=== PATIENT | female | born 1950 | race Caucasian/White ===

== ENCOUNTER 2017-12-04 13:18 | Emergency (ER) | payer MEDICARE, OTHER ==
[~2017-12-04] VITALS: Ht 167.6 cm; Wt 68.4 kg
[2017-12-04] MEDS ORDERED: ONDANSETRON 2MG/ML, 2ML IVPush ONE (13:30)
[2017-12-04] MEDS ORDERED: SODIUM CHLORIDE 0.9% 1,000ML IVBOLUS ONE (13:30)
[2017-12-04 13:48] LABS: BASOPHILS # (AUTO) 0.06 x10^3/uL (0-0.1); BASOPHILS % (AUTO) 1 % (0-1); EOSINOPHILS # (AUTO) 0.34 x10^3/uL (0-0.4); EOSINOPHILS % (AUTO) 4 % (1-7); LYMPHOCYTES # (AUTO) 2.86 x10^3/uL (1-3.4); LYMPHOCYTES % (AUTO) 34 % (22-44); MD NO; MEAN CORPUSCULAR HGB CONC 34.6 g/dL (32.4-35.8); MEAN CORPUSCULAR VOLUME 86.8 fL (80-100); MEAN PLATELET VOLUME 7.7 fL (7.4-10.4); MONOCYTES # (AUTO) 0.78 x10^3/uL (0.2-0.8); MONOCYTES % (AUTO) 9 % (2-9); NEUTROPHILS # (AUTO) 4.51 x10^3/uL (1.8-6.8); NEUTROPHILS % (AUTO) 53 % (42-75); PLATELET COUNT 313 x10^3/uL (130-400); RED BLOOD COUNT 4.79 x10^6/uL (3.82-5.3); RED CELL DISTRIBUTION WIDTH 13.8 % (9.6-15.2)
[2017-12-04 14:00] LABS: ALBUMIN 4.2 g/dL (3.4-5.0); ANION GAP 7 mmol/L (5-15); CALCIUM 9.3 mg/dL (8.5-10.1); CHLORIDE 107 mmol/L (98-107); CREATININE 0.71 mg/dL (0.55-1.02)
[2017-12-04 14:03] LABS: TROPONIN I < 0.015 ng/mL (0.000-0.045)
[2017-12-04] MEDS ORDERED: ONDANSETRON 2MG/ML, 2ML ONE (14:10)
[2017-12-04 15:31] VITALS: BP 141/60
== END 2017-12-04 15:57 | disposition home or self-care (01) ==
LOC: ED 15:51
DX: R55 Syncope and collapse (principal); J45.909 Unspecified asthma, uncomplicated; R53.1 Weakness; Z90.89 Acquired absence of other organs
CPT/HCPCS: 36415; 80048; 82040; 84484; 85025; 93005; 96360; 99285; J7030

== ENCOUNTER 2017-12-06 20:57 | Emergency (ER) | payer MEDICARE, OTHER ==
[~2017-12-06] VITALS: Ht 167.6 cm; Wt 67.4 kg
[2017-12-06] MEDS ORDERED: LEVO25TA4 PO (21:18)
[2017-12-06 21:46] LABS: BASOPHILS # (AUTO) 0.05 x10^3/uL (0-0.1); BASOPHILS % (AUTO) 1 % (0-1); EOSINOPHILS # (AUTO) 0.28 x10^3/uL (0-0.4); EOSINOPHILS % (AUTO) 3 % (1-7); LYMPHOCYTES # (AUTO) 2.67 x10^3/uL (1-3.4); LYMPHOCYTES % (AUTO) 29 % (22-44); MD NO; MEAN CORPUSCULAR HEMOGLOBIN 30.2 pg (27.0-34.8); MEAN CORPUSCULAR HGB CONC 34.5 g/dL (32.4-35.8); MEAN CORPUSCULAR VOLUME 87.4 fL (80-100); MONOCYTES # (AUTO) 0.82 x10^3/uL (0.2-0.8); MONOCYTES % (AUTO) 9 % (2-9); NEUTROPHILS # (AUTO) 5.32 x10^3/uL (1.8-6.8); NEUTROPHILS % (AUTO) 58 % (42-75); PLATELET COUNT 294 x10^3/uL (130-400); RED BLOOD COUNT 4.63 x10^6/uL (3.82-5.3); RED CELL DISTRIBUTION WIDTH 13.5 % (9.6-15.2)
[2017-12-06 21:54] LABS: ALANINE AMINOTRANSFERASE 34 U/L (12-78); ALBUMIN 3.8 g/dL (3.4-5.0); ANION GAP 7 mmol/L (5-15); CALCIUM 8.9 mg/dL (8.5-10.1); CHLORIDE 109 mmol/L (98-107); CREATININE 1.08 mg/dL (0.55-1.02)
[2017-12-06 21:58] LABS: ALKALINE PHOSPHATASE 66 U/L (45-117); BILIRUBIN,TOTAL 0.4 mg/dL (0.2-1.0); FREE T4 (FREE THYROXINE) 0.89 ng/dL (0.76-1.46); TOTAL PROTEIN 7.5 g/dL (6.4-8.2); TROPONIN I < 0.015 ng/mL (0.000-0.045)
[2017-12-06 22:37] VITALS: BP 128/76
[2017-12-06 22:45] LABS: MICROSCOPIC INDICATED
[2017-12-06 22:46] LABS: CULTURE INDICATED? YES
== END 2017-12-06 23:37 | disposition home or self-care (01) ==
LOC: ED 22:00
DX: R53.1 Weakness (principal); N30.90 Cystitis, unspecified without hematuria; E03.9 Hypothyroidism, unspecified; J45.909 Unspecified asthma, uncomplicated; R42 Dizziness and giddiness; R07.89 Other chest pain; Z90.89 Acquired absence of other organs
CPT/HCPCS: 36415; 80053; 81001; 84439; 84443; 84484; 85025; 87086; 93005; 99285

== ENCOUNTER → 2018-02-14 | Outpatient (CLI) | payer MEDICARE, OTHER ==
[~2018-02-14] MED LIST: LEVO25TA4 PO
== END | disposition home or self-care (01) ==
LOC: CFH 07:46
PROVIDERS: ATTEND Internal Medicine Cardiovascular Disease
DX: R06.02 Shortness of breath (principal); R07.89 Other chest pain; R94.31 Abnormal electrocardiogram [ECG] [EKG]
CPT/HCPCS: 78452; 93017; 93306; A9502

== ENCOUNTER → 2018-03-13 | Outpatient (CLI) | payer MEDICARE, OTHER | END | disposition home or self-care (01) | LOC: CFH 13:03 | PROVIDERS: ATTEND Nurse Practitioner Family | DX: R94.2 Abnormal results of pulmonary function studies (principal) | CPT/HCPCS: 71250 ==

== ENCOUNTER → 2018-06-06 | Outpatient (CLI) | payer MEDICARE, OTHER | END | disposition home or self-care (01) | LOC: CFH 07:02 | PROVIDERS: ATTEND Nurse Practitioner Family | DX: R10.9 Unspecified abdominal pain (principal) | CPT/HCPCS: 76705 ==

== ENCOUNTER 2018-07-06 20:08 | Emergency (ER) | payer MEDICARE, OTHER ==
[~2018-07-06] VITALS: Ht 168.9 cm; Wt 66.7 kg
[2018-07-06 20:38] LABS: BASOPHILS # (AUTO) 0.05 x10^3/uL (0-0.1); BASOPHILS % (AUTO) 1 % (0-1); EOSINOPHILS # (AUTO) 0.44 x10^3/uL (0-0.4); EOSINOPHILS % (AUTO) 4 % (1-7); LYMPHOCYTES # (AUTO) 2.56 x10^3/uL (1-3.4); LYMPHOCYTES % (AUTO) 25 % (22-44); MD NO; MEAN CORPUSCULAR HEMOGLOBIN 30.1 pg (27.0-34.8); MEAN CORPUSCULAR HGB CONC 34.6 g/dL (32.4-35.8); MEAN PLATELET VOLUME 7.9 fL (7.4-10.4); MONOCYTES # (AUTO) 0.88 x10^3/uL (0.2-0.8); MONOCYTES % (AUTO) 9 % (2-9); NEUTROPHILS # (AUTO) 6.25 x10^3/uL (1.8-6.8); NEUTROPHILS % (AUTO) 61 % (42-75); PLATELET COUNT 331 x10^3/uL (130-400); RED BLOOD COUNT 4.93 x10^6/uL (3.82-5.3); RED CELL DISTRIBUTION WIDTH 13.8 % (9.6-15.2)
--- NOTE | 2018-07-06 20:40 | NUR ---
THIS IS A 67 YO FEMALE WHO PRESENTS TO THE ER C/O TWO BRIEF EPISODES OF "JOLTS" TO HER STERNUM AT APPROX 1600 AND APPROX 1800 TODAY RATED AT 3/10 AND 7/10 RESPECTIVELY. PT CURRENTLY DENIES PAIN, SOB OR DIZZINESS. PT REPORTED SHE NOTED HER BP TO BE HIGH AFTER THESE "JOLTS". PT AO X 4. SKIN PWD. RESP EVEN AND EQAUL. PT 70'S NSR ON THE MONITOR. CALL LIGHT WITHIN REACH. WILL CONT TO MONITOR PT.
[2018-07-06 20:47] LABS: ALBUMIN 4.4 g/dL (3.4-5.0); ANION GAP 6 mmol/L (5-15); CALCIUM 9.4 mg/dL (8.5-10.1); CHLORIDE 109 mmol/L (98-107); CREATININE 0.81 mg/dL (0.55-1.02)
[2018-07-06 20:52] LABS: FREE T4 (FREE THYROXINE) 0.84 ng/dL (0.76-1.46); TROPONIN I < 0.015 ng/mL (0.000-0.045)
--- NOTE | 2018-07-06 21:59 | NUR ---
RECEIVED REPORT FORM MAGALYS ISABEL.
--- NOTE | 2018-07-06 22:01 | NUR ---
REPORT TO CHALO HINES AT THIS TIME.
[2018-07-06 22:12] VITALS: BP 121/61
== END 2018-07-06 22:14 | disposition home or self-care (01) ==
LOC: ED 22:03
DX: R00.2 Palpitations (principal); R42 Dizziness and giddiness; J45.909 Unspecified asthma, uncomplicated; Z86.39 Personal history of other endocrine, nutritional and metabolic disease
CPT/HCPCS: 36415; 71045; 80048; 82040; 84439; 84443; 84484; 85025; 93005; 99284

== ENCOUNTER → 2018-07-25 | Outpatient (CLI) | payer MEDICARE, OTHER ==
[~2018-07-25] MED LIST changes: +SINCALIDE (KINEVAC) 5 MCG ONE
== END | disposition home or self-care (01) ==
LOC: PETCFH 07:20
PROVIDERS: ATTEND Family Medicine
DX: R10.9 Unspecified abdominal pain (principal)
CPT/HCPCS: 78227; A9537; J2805

== ENCOUNTER → 2018-08-22 | Outpatient (CLI) | payer MEDICARE, OTHER ==
[~2018-08-22] MED LIST changes: -SINCALIDE (KINEVAC) 5 MCG ONE
== END | disposition home or self-care (01) ==
LOC: CFH 09:42
PROVIDERS: ATTEND Family Medicine
DX: M85.88 Other specified disorders of bone density and structure, other site (principal); Z78.0 Asymptomatic menopausal state; Z88.8 Allergy status to other drugs, medicaments and biological substances
CPT/HCPCS: 77080

== ENCOUNTER → 2020-11-18 | Outpatient (CLI) | payer MEDICARE, OTHER ==
[~2020-11-18] MED LIST changes: +BISM262T12 PO; +CHOL10003 PO; +CLOB15CR19 TP; +DICY10CA3 PO; +LEVA15HF4 INH; +MULT-449 PO; +NASALCORT NAS; +OMEG1CAP25 PO; +RED600CA2 PO; +THYR90TA PO; +TRIA15CR53 TP; +[UNRECOGNIZED DRUG - OTHER] PO; +[UNRECOGNIZED DRUG - OTHER] PO; +[UNRECOGNIZED DRUG - OTHER] PO; +[UNRECOGNIZED DRUG - OTHER] PO; +[UNRECOGNIZED DRUG - OTHER] PO
[2020-11-18 11:51] LABS: MICROSCOPIC NOT IND
== END | disposition home or self-care (01) ==
LOC: STAR 10:33
PROVIDERS: ATTEND Specialist
DX: Z01.818 Encounter for other preprocedural examination (principal); N81.6 Rectocele; Z20.822 Contact with and (suspected) exposure to COVID-19
CPT/HCPCS: 81003; 93005; U0003; U0005

== ENCOUNTER 2020-11-24 08:09 | Day surgery (SDC) | payer MEDICARE, OTHER ==
[~2020-11-24] VITALS: Ht 167.6 cm; Wt 61.3 kg
[2020-11-24 08:48] VITALS: BP 113/71
[2020-11-24] MEDS ORDERED: CHLORHEXIDINE 15 ML UDC ONE (08:50)
[2020-11-24] MEDS ORDERED: LACTATED RINGERS 1,000 ML IV SCH (09:00)
[2020-11-24] MEDS ORDERED: CHLORHEXIDINE 15 ML UDC PO ONE (09:00)
[2020-11-24] MEDS ORDERED: FENTANYL PF 250 MCG/5ML ONE (09:34)
[2020-11-24] MEDS ORDERED: MIDAZOLAM 1 MG/ML, 2ML ONE (09:34)
[2020-11-24] MEDS ORDERED: BUPIVACAINE/PF 0.25% ONE (10:13)
[2020-11-24] MEDS ORDERED: ESTROGENS CONJUGATED VAG CRM 0.625MG/1G, 30GM ONE (10:13)
[2020-11-24] MEDS ORDERED: EPINEPHRINE 1 MG/ML, 1ML ONE (10:13)
[2020-11-24] MEDS ORDERED: GENTAMICIN 80 MG/2 ML ONE (10:13)
[2020-11-24] MEDS ORDERED: ONDANSETRON 2MG/ML, 2ML IVPush PRN (10:30)
[2020-11-24] MEDS ORDERED: MEPERIDINE/PF 25MG/0.5ML IVPush PRN (10:30)
[2020-11-24] MEDS ORDERED: ACETAMINOPHEN 325 MG TABLET PO PRN (10:30)
[2020-11-24] MEDS ORDERED: HYDROmorphone 1 MG/ML, 1ML INJ IVPush PRN (10:30)
[2020-11-24] MEDS ORDERED: ALBUTEROL/IPRATROPIUM 2.5MG/0.5MG, 3 ML NPPB PRN (10:30)
[2020-11-24] MEDS ORDERED: EPHEDRINE 50 MG/ML, 1ML IM PRN (10:30)
[2020-11-24] MEDS ORDERED: OXYcodone 5 MG/5 ML ORAL.SOL UDC PO PRN (10:30)
[2020-11-24] MEDS ORDERED: PROMETHAZINE 25 MG/ML, 1ML IVPush PRN (10:30)
[2020-11-24] MEDS ORDERED: FENTANYL PF 100 MCG/2ML IV PRN (10:30)
[2020-11-24] MEDS ORDERED: ALBUTEROL SULFATE 2.5 MG/3 ML NPPB PRN (10:30)
[2020-11-24] MEDS ORDERED: ACETAMINOPHEN 650 MG/20.3 ML UDC ONE (11:44)
[2020-11-24] MEDS ORDERED: KETOROLAC 30 MG/1 ML ONE (16:35)
[2020-11-24] MEDS ORDERED: EPHEDRINE 50 MG/ML, 1ML ONE (16:35)
[2020-11-24] MEDS ORDERED: CEFAZOLIN 1,000 MG ONE (16:35)
[2020-11-24] MEDS ORDERED: GLYCOPYRROLATE 0.2MG/1ML, 5ML ONE (16:35)
[2020-11-24] MEDS ORDERED: PROPOFOL 10 MG/ML, 20ML ONE (16:35)
[2020-11-24] MEDS ORDERED: ONDANSETRON 2MG/ML, 2ML ONE (16:35)
[2020-11-24] MEDS ORDERED: PHENYLEPHRINE 10 MG/ML ONE (16:35)
[2020-11-24] MEDS ORDERED: DEXAMETHASONE 4 MG/ML, 1ML ONE (16:35)
== END 2020-11-24 13:40 | disposition home or self-care (01) ==
LOC: OUT 08:09
PROVIDERS: ATTEND Specialist
DX: N81.6 Rectocele (principal); J45.909 Unspecified asthma, uncomplicated; G43.909 Migraine, unspecified, not intractable, without status migrainosus; Z79.899 Other long term (current) drug therapy
CPT/HCPCS: 57250; J0171; J0690; J1100; J1580; J1885; J2250; J2370; J2405; J2704; J3010; J7120